=== PATIENT | female | born 1955 | race Caucasian/White ===

== ENCOUNTER 2022-09-24 16:03 | Inpatient (IN) | payer MEDICARE, MEDICAID ==
[~2022-09-24] VITALS: Ht 162.6 cm; Wt 48.3 kg
[2022-09-24 18:35] LABS: Basophils # (auto) 0.1 10 ^3/uL (0-0.2); Basophils % (auto) 0.4 % (0.0-2.0); Eosinophils # (auto) 0 10 ^3/uL (0-0.8); Eosinophils % (auto) 0.2 % (0.0-7.0); Hematocrit 41.7 % (36.0-46.0); Hemoglobin 13.5 g/dL (12.2-16.2); Lymphocytes # (auto) 1.1 10 ^3/uL (0.4-5.4); Mean Corpuscular Hemoglobin 27.1 pg (28.0-32.0); Mean Corpuscular Hgb Conc. 32.3 g/dL (32.0-36.0); Monocytes # (auto) 0.7 10 ^3/uL (0-1.3); Monocytes % (auto) 4.1 % (0.0-12.0); Neutrophils % (auto) 89.3 % (37.0-80.0); Nucleated Red Blood Cells % 0.1 %; Red Blood Cells 4.96 10^6/uL (4.0-5.20); Red Cell Distribution Width 14.4 % (11.8-14.3); White Blood Cell 17.9 10^3/uL (4.4-10.8)
[2022-09-24 18:54] LABS: Albumin 3.9 g/dL (3.4-5.0); BUN/Creatinine Ratio 18.5; Potassium 3.9 mmol/L (3.5-5.1)
[2022-09-24 18:57] LABS: Bilirubin, Total 0.7 mg/dL (0.2-1.0); Total Protein 9.2 g/dL (6.4-8.2)
[2022-09-24] MEDS ORDERED: ONDANSETRON HCL 4 MG/2 ML VIAL IV ONE (21:30)
[2022-09-24] MEDS ORDERED: MORPHINE SULFATE INJ 2 MG/ml SYRG IV ONE (21:30)
[2022-09-24] MEDS ORDERED: cefTRIAXone 1GM/50ML D5W 50 ML IV ONE (22:30)
[2022-09-25] MEDS: MORPHINE SULFATE INJ 2 MG/ml SYRG IV PRN ×3 (00:24→16:39)
[2022-09-25] MEDS: SODIUM CHLORIDE 0.9% 1,000 ML IV SCH ×3 (00:26→22:02)
[2022-09-25 04:28] LABS: Basophils # (auto) 0.1 10 ^3/uL (0-0.2); Basophils % (auto) 0.9 % (0.0-2.0); Eosinophils # (auto) 0.1 10 ^3/uL (0-0.8); Eosinophils % (auto) 0.7 % (0.0-7.0); Hematocrit 37.6 % (36.0-46.0); Hemoglobin 12.2 g/dL (12.2-16.2); Lymphocytes # (auto) 2.4 10 ^3/uL (0.4-5.4); Lymphocytes % (auto) 19.2 % (10.0-50.0); Mean Corpuscular Hemoglobin 27.3 pg (28.0-32.0); Mean Corpuscular Hgb Conc. 32.5 g/dL (32.0-36.0); Mean Corpuscular Volume 84.1 fL (80.0-100.0); Monocytes # (auto) 1.1 10 ^3/uL (0-1.3); Monocytes % (auto) 8.7 % (0.0-12.0); Neutrophils # (auto) 8.8 10 ^3/uL (1.6-8.6); Neutrophils % (auto) 70.5 % (37.0-80.0); Red Blood Cells 4.46 10^6/uL (4.0-5.20); Red Cell Distribution Width 14.4 % (11.8-14.3); White Blood Cell 12.5 10^3/uL (4.4-10.8)
[2022-09-25 04:47] LABS: Calcium 9.4 mg/dL (8.5-10.1); Potassium 3.6 mmol/L (3.5-5.1)
[2022-09-25 04:48] LABS: BUN/Creatinine Ratio 35.1
[2022-09-25] MEDS: PANTOPRAZOLE 40 MG/10 ML VIAL INJ IV SCH (10:10)
[2022-09-25] MEDS ORDERED: GASTROGRAFIN 120 ML SOL ONE (12:21)
[2022-09-25] MEDS: ONDANSETRON HCL 4 MG/2 ML VIAL IV PRN ×2 (13:41→18:18)
[2022-09-25] MEDS: levoFLOXacin 500MG 100 ML IV SCH (13:41)
[2022-09-25] MEDS ORDERED: LORazepam 2MG/ML-1ML VIAL IV ONE (18:00)
[2022-09-25] MEDS ORDERED: FLUO20CA90 PO (18:24)
[2022-09-25] MEDS ORDERED: CARI350T22 PO (18:24)
[2022-09-25] MEDS ORDERED: TRAZ100T3 PO (18:24)
[2022-09-25] MEDS ORDERED: LINA290C PO (18:24)
[2022-09-25] MEDS ORDERED: BUPR150T18 PO (18:27)
[2022-09-25] MEDS ORDERED: ONDA-188 PO (18:27)
[2022-09-25] MEDS ORDERED: PANT40T PO (18:27)
[2022-09-25] MEDS ORDERED: GABA300C10 PO (18:27)
[2022-09-25] MEDS ORDERED: DOCU100C10 PO (18:27)
[2022-09-25] MEDS ORDERED: [UNRECOGNIZED DRUG - CODE] PO (18:27)
[2022-09-25] MEDS ORDERED: DULO1CAP6 PO (18:27)
[2022-09-25] MEDS ORDERED: BUPR20DI TOP (18:27)
[2022-09-25] MEDS ORDERED: PRED10TA PO (18:27)
[2022-09-25] MEDS ORDERED: [UNRECOGNIZED DRUG - CODE] PO (18:27)
[2022-09-25] MEDS ORDERED: IBUP800T26 PO (18:27)
[2022-09-25 20:00] VITALS: BP 147/98
[2022-09-25 22:00] VITALS: BP 147/98
[2022-09-26] MEDS: MORPHINE SULFATE INJ 2 MG/ml SYRG IV PRN ×4 (00:27→20:13)
[2022-09-26 05:00] VITALS: BP 143/83
[2022-09-26 09:00] VITALS: BP 111/80
[2022-09-26] MEDS: SODIUM CHLORIDE 0.9% 1,000 ML IV SCH ×2 (09:49→21:34)
[2022-09-26] MEDS: PANTOPRAZOLE 40 MG/10 ML VIAL INJ IV SCH (09:50)
[2022-09-26] MEDS: levoFLOXacin 500MG 100 ML IV SCH (09:50)
[2022-09-26 13:00] VITALS: BP 133/108
[2022-09-26 17:00] VITALS: BP 156/81
[2022-09-27] MEDS: MORPHINE SULFATE INJ 2 MG/ml SYRG IV PRN ×4 (01:20→20:26)
[2022-09-27 05:00] VITALS: BP 151/81
[2022-09-27 08:00] VITALS: BP 172/86
[2022-09-27] MEDS: levoFLOXacin 500MG 100 ML IV SCH (08:58)
[2022-09-27] MEDS: PANTOPRAZOLE 40 MG/10 ML VIAL INJ IV SCH (08:59)
[2022-09-27] MEDS: SODIUM CHLORIDE 0.9% 1,000 ML IV SCH ×2 (09:20→21:06)
[2022-09-27 12:48] VITALS: BP 154/76
[2022-09-27 16:39] VITALS: BP 154/80
[2022-09-27 22:00] VITALS: BP 151/77
[2022-09-28] MEDS ORDERED: TEMAZEPAM 15 MG CAP PO ONE (00:15)
[2022-09-28 05:00] VITALS: BP 148/83
[2022-09-28] MEDS ORDERED: hydrALAZINE HCL 20 MG/ML VL IV PRN (08:30)
[2022-09-28] MEDS: MORPHINE SULFATE INJ 2 MG/ml SYRG IV PRN ×3 (08:42→22:30)
[2022-09-28] MEDS: PANTOPRAZOLE 40 MG/10 ML VIAL INJ IV SCH (08:44)
[2022-09-28] MEDS: levoFLOXacin 500MG 100 ML IV SCH (08:46)
[2022-09-28] MEDS: SODIUM CHLORIDE 0.9% 1,000 ML IV SCH ×2 (08:52→20:38)
[2022-09-28 09:00] VITALS: BP 157/93
[2022-09-28 13:00] VITALS: BP 147/86
[2022-09-28 17:00] VITALS: BP 159/91
[2022-09-28] MEDS ORDERED: traZODone HCL 50 MG TAB PO PRN (17:15)
[2022-09-28] MEDS: busPIRone HCL 10 MG TAB PO SCH (21:23)
[2022-09-28] MEDS: FLUoxetine HCL 20 MG CAP PO SCH (21:23)
[2022-09-28 21:53] VITALS: BP 137/79
[2022-09-29 05:00] VITALS: BP 118/73
[2022-09-29] MEDS: busPIRone HCL 10 MG TAB PO SCH ×2 (05:45→14:10)
[2022-09-29 08:00] VITALS: BP 142/66
[2022-09-29] MEDS: SODIUM CHLORIDE 0.9% 1,000 ML IV SCH (08:24)
[2022-09-29 09:38] LABS: Basophils # (auto) 0 10 ^3/uL (0-0.2); Basophils % (auto) 0.3 % (0.0-2.0); Eosinophils # (auto) 0 10 ^3/uL (0-0.8); Eosinophils % (auto) 0.6 % (0.0-7.0); Hematocrit 34.9 % (36.0-46.0); Hemoglobin 11.6 g/dL (12.2-16.2); Lymphocytes # (auto) 1.8 10 ^3/uL (0.4-5.4); Lymphocytes % (auto) 22.1 % (10.0-50.0); Mean Corpuscular Hemoglobin 27.1 pg (28.0-32.0); Mean Corpuscular Hgb Conc. 33.2 g/dL (32.0-36.0); Mean Corpuscular Volume 81.9 fL (80.0-100.0); Monocytes % (auto) 12.1 % (0.0-12.0); Neutrophils # (auto) 5.3 10 ^3/uL (1.6-8.6); Neutrophils % (auto) 64.9 % (37.0-80.0); Red Blood Cells 4.26 10^6/uL (4.0-5.20); Red Cell Distribution Width 13.8 % (11.8-14.3); White Blood Cell 8.2 10^3/uL (4.4-10.8)
[2022-09-29] MEDS: levoFLOXacin 500MG 100 ML IV SCH (09:56)
[2022-09-29 09:57] LABS: BUN/Creatinine Ratio 22.4; Bilirubin, Total 0.6 mg/dL (0.2-1.0); Calcium 9.4 mg/dL (8.5-10.1); Total Protein 7.4 g/dL (6.4-8.2)
[2022-09-29] MEDS: PANTOPRAZOLE 40 MG/10 ML VIAL INJ IV SCH (09:57)
[2022-09-29] MEDS: FLUoxetine HCL 20 MG CAP PO SCH (09:57)
[2022-09-29] MEDS: MORPHINE SULFATE INJ 2 MG/ml SYRG IV PRN ×2 (09:59→14:11)
[2022-09-29] MEDS ORDERED: DULoxetine HCL 30 MG CAP PO SCH (10:00)
[2022-09-29] MEDS ORDERED: amLODIPine BESYLATE 5 MG TAB PO SCH (10:00)
[2022-09-29 10:42] LABS: Potassium 2.9 mmol/L (3.5-5.1)
[2022-09-29] MEDS ORDERED: POTASSIUM EFFERVESENT TAB 25 MEQ PO ONE (11:00)
[2022-09-29 12:59] VITALS: BP 133/84
[2022-09-29 13:00] VITALS: BP 122/88
[2022-09-29 14:11] VITALS: BP 122/88
== END 2022-09-29 16:54 | disposition home or self-care (01) | DRG 247 ==
LOC: EDBD 16:03 → ER 16:03 → OVERFLOW 22:33 → WEST WING 09-25 16:03
PROVIDERS: ADMIT Nurse Practitioner; ATTEND Internal Medicine
PROC: 0D9670Z Drainage of Stomach with Drainage Device, Via Natural or Artificial Opening (ICD-10-PCS; principal; 2022-09-25)
DX: K56.600 Partial intestinal obstruction, unspecified as to cause (principal); N17.9 Acute kidney failure, unspecified; K80.20 Calculus of gallbladder without cholecystitis without obstruction; G89.4 Chronic pain syndrome; R55 Syncope and collapse; Z20.822 Contact with and (suspected) exposure to COVID-19; D72.829 Elevated white blood cell count, unspecified; E87.6 Hypokalemia; R63.4 Abnormal weight loss; F32.A Depression, unspecified; F41.9 Anxiety disorder, unspecified; I10 Essential (primary) hypertension; Z68.1 Body mass index [BMI] 19.9 or less, adult; Z88.0 Allergy status to penicillin; Z87.828 Personal history of other (healed) physical injury and trauma
CPT/HCPCS: 36415; 71045; 74176; 74250; 78226; 80048; 80053; 82565; 83690; 84484; 85025; 87426; 93005; 96361; 96365; 96375; C9113; G0378; J1956; J2405

== ENCOUNTER 2023-06-20 13:42 | Emergency (ER) | payer MEDICARE, MEDICAID ==
[~2023-06-20] VITALS: Ht 162.6 cm; Wt 60.9 kg
[~2023-06-20 13:42] MED LIST: BUPR150T18 PO; BUPR20DI TOP; CARI350T27 PO; DOCU-265 PO; DULO1CAP6 PO; FLUO20CA90 PO; GABA-1250 PO; IBUP-1455 PO; LINA290C PO; ONDA-188 PO; PANT40T PO; PRED10TA PO; TRAZ-228 PO; [UNRECOGNIZED DRUG - CODE] PO; [UNRECOGNIZED DRUG - CODE] PO
[2023-06-20 14:33] LABS: Basophils # (auto) 0 10 ^3/uL (0-0.2); Basophils % (auto) 0.4 % (0.0-2.0); Eosinophils # (auto) 0.2 10 ^3/uL (0-0.8); Hemoglobin 10.7 g/dL (12.2-16.2); Lymphocytes # (auto) 1.5 10 ^3/uL (0.4-5.4); Mean Corpuscular Hemoglobin 26.7 pg (28.0-32.0); Monocytes # (auto) 0.5 10 ^3/uL (0-1.3); Neutrophils # (auto) 3.8 10 ^3/uL (1.6-8.6); White Blood Cell 6.1 10^3/uL (4.4-10.8)
[2023-06-20 14:35] LABS: Eosinophils % (auto) 3.6 % (0.0-7.0); Hematocrit 32.7 % (36.0-46.0); Lymphocytes % (auto) 24.4 % (10.0-50.0); Mean Corpuscular Hgb Conc. 32.8 g/dL (32.0-36.0); Mean Corpuscular Volume 81.6 fL (80.0-100.0); Monocytes % (auto) 8.8 % (0.0-12.0); Neutrophils % (auto) 62.8 % (37.0-80.0); Nucleated Red Blood Cells % 0.1 %; Red Cell Distribution Width 16.4 % (11.8-14.3)
[2023-06-20 14:44] VITALS: BP 172/89; PULSE 73; RESP 18; TEMP 98; O2SAT 96
[2023-06-20 14:45] LABS: Chloride 107 mmol/L (98-107); Potassium 3.4 mmol/L (3.5-5.1); Sodium 140 mmol/L (136-145)
[2023-06-20 14:46] LABS: Anion Gap 6.3 (5-15); Calcium 8.9 mg/dL (8.5-10.1); Carbon Dioxide 26.7 mmol/L (20-30)
[2023-06-20 14:50] LABS: Prothrombin Time 10.5 sec (9.3-11.8)
[2023-06-20 14:51] LABS: BUN/Creatinine Ratio 17.4 (10.0-20.0); Blood Urea Nitrogen 12 mg/dL (9-23); Glucose 89 mg/dL (74-106)
[2023-06-20] MEDS ORDERED: NAPR-746 PO (15:34)
== END 2023-06-20 15:44 | disposition home or self-care (01) ==
LOC: ER 13:42
DX: I82.611 Acute embolism and thrombosis of superficial veins of right upper extremity (principal); Z88.0 Allergy status to penicillin; Z88.1 Allergy status to other antibiotic agents; Z79.1 Long term (current) use of non-steroidal anti-inflammatories (NSAID); Z79.899 Other long term (current) drug therapy; S40.021A Contusion of right upper arm, initial encounter; X58.XXXA Exposure to other specified factors, initial encounter; Y93.89 Activity, other specified; Y92.89 Other specified places as the place of occurrence of the external cause; Y99.8 Other external cause status
CPT/HCPCS: 36415; 80048; 85025; 85610; 93971